=== PATIENT | male | born 1955 | race Hispanic/Latino ===

== ENCOUNTER 2022-07-08 06:50 | Day surgery (SDC) | payer MEDICARE, OTHER ==
[~2022-07-08] VITALS: Ht 170.2 cm; Wt 90.9 kg
[~2022-07-08 06:50] MED LIST: FLOMAX0.4 MG PO; LYRICA CR330 MG PO; MELOXICAM15 MG PO; METFORMIN HCL500 M3 PO; OMEGA 3 1,0001 EACH PO; OSTERA TABLET1 EACH PO; SAW PALMETTO500 MG PO; ZESTRIL2.5 MG PO; ZYRTEC10 MG PO
--- NOTE | 2022-07-08 10:17 | NUR ---
07/08/22 [address] [place] 1009- PT ARRIVES TO PACU REACTIVE TO PAINFUL STIMULI. PT GRIMACES TO A JAW THRUST. PT DOES NOT OPEN HIS EYES OR ANSWER QUESTIONS. RESP EVEN AND UNLABORED. OXYGEN SAT MID HIGH 90'S ON RA. 1011- CBG 106. 1012- PT SNORING. ABLE TO AROUSE PT. PT SLIGHTLY OPENS HIS EYES. SNORING STOPS. 1016- PT REACTIVE TO VERBAL STIMULI. PT ABLE TO SAY "YES" WHEN ASKED TO TAKE DEEP BREATHS.
--- NOTE | 2022-07-08 12:05 | NUR ---
1045: PT RETURNS TO UNIT VIA STRETCHER FROM PACU. AWAKE AND ALERT ON ARRIVAL. VSS, RESP EVEN AND UNLABORED. REPORTS PAIN LEVEL 4/10. MADDIE PO INTAKE WELL. PAIN RX ADMINISTERED ORDERED. SCDS IN PLACE. POC DISCUSSED AND PT AGREEABLE AT THIS TIME. NO NEEDS VOICED, CALL LIGHT WITHIN REACH 1155: PT LAYS IN STRETCHER AND VISITS WITH AT THE BEDSIDE. VSS, RESP EVEN AND UNLABORED. DENIES PAIN AND NAUSEA. DENIES NEED TO VOID AT THIS TIME, NO NEEDS VOICED. CALL LIGHT WITHIN REACH
--- NOTE | 2022-07-08 13:34 | NUR ---
1230: PT WITH CALL FOR THIS RN, REPORTS THE URGE TO VOID. USES URINAL AT THE BEDSIDE AND HAS SUCCESSFUL FIRST POSTOP VOID, 260MLS. SMALL STRINGY CLOT NOTED. VSS, RESP EVEN AND UNLABORED. DENIES PAIN AND NAUSEA. DANGLES AT THE BEDSIDE. MADDIE WELL, DENIES DIZZINESS AND SOB. IV REMOVED WITH CATH TIP INTACT AND PRESSURE APPLIED TO SITE, WNL. PT TO DRESS AND PREPARE FOR DC. DENIES NEED FOR ASSISTANCE 1255: DC INSTRUCTIONS PROVIDED BY MARSHA MARTINES AND PT WHEELED OFF OF UNIT FOR DC
--- NOTE | 2022-07-09 18:30 | OR ---
[facility] [address], [place] [address] Signed DATE OF OPERATION: 07/08/2022 SURGEON: Barron Lanza MD PREOPERATIVE DIAGNOSES: 1. 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 2. Urinary urgency and frequency. POSTOPERATIVE DIAGNOSES: 1. 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 2. Urinary urgency and frequency. 3. Moderate bladder neck elevation. NAMES OF PROCEDURES: 1. Diagnostic cystoscopy. 2. UroLift procedure. ANESTHESIA: General LMA. ESTIMATED BLOOD LOSS: Minimal. COMPLICATIONS: None. SPECIMENS: None. DRAINS: A 20-Zambian two-way Landin catheter, connected to gravity drainage. INDICATIONS FOR PROCEDURE: Mr. Loredo is a very pleasant 66-year-old gentleman who initially presented to me with complaints of urinary urgency, frequency, and nocturia symptoms. He does have a history of spinal cord injury in the past and so I was initially suspicious that he was experiencing overactive bladder symptoms. He underwent diagnostic cystoscopy which did reveal moderate bilobar lateral lobe hypertrophy with an elevated bladder neck. Bladder wall trabeculation was also present. After a long discussion with the patient and his regarding his treatment options. He did elect to undergo the UroLift procedure. 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 FINDINGS: 1. On cystoscopy, there was no evidence of any suspicious masses, lesions, or stones. Bilateral ureteral orifices are in normal anatomic location. There is grade 2 bladder wall trabeculation present. Also, noted is an elevated bladder neck, but there is no median bar or median lobe present. 2. The UroLift [address] three UroLift implants on the right side and two implants on the left. DESCRIPTION OF PROCEDURE: After informed consent was obtained, the patient was taken back to the operating room. He was transferred from the [facility] to the operating room table, where general anesthesia was induced. He was placed in the dorsal lithotomy position and the genitalia prepped and draped in standard sterile fashion. A 20-Zambian cystoscope was inserted into the urethral meatus. Guided by a visual obturator. Inspection of the prostatic urethra was notable for the obstruction present as a result of the enlarged lateral lobes. The visual obturator was then replaced with a UroLift 2 system delivery device. The first treatment site was the patient's left side approximately 1.5 cm distal to the bladder neck. The UroLift 2 system implantation steps were completed as indicated in product documentation. The capsular tap was successfully deployed, the urethral end piece was successfully affixed to the suture, and the suture was cut. The delivery device was then readvanced into the patient's bladder and then removed from the sheath and the patient. The implant cartridge was removed from the delivery device and replaced with the scope seal. The reassemble device was then reinserted into the patient's bladder. The implant location and opening effect was confirmed cystoscopically. The same steps of the procedure were then performed on the right side approximately 1.5 cm from the bladder neck. This was followed by two additional implants just proximal to the verumontanum on the right side and one additional implant on the left side of the prostate. All of this was performed following the indicated implantation technique. Final cystoscopy was conducted first to inspect the locations state of each implant and to confirm the presence of a continuous anterior channel from the verumontanum to bladder neck. This was confirmed to be present through the prostatic urethra with irrigation flow turned off. The bladder was then filled with 100 mL of irrigation fluid and a 20-Zambian two-way Landin catheter was inserted into the patient's bladder and connected to gravity drainage. 10 mL of sterile water was instilled into the patient's balloon today. The catheter was connected to gravity drainage and the procedure was Electronically Signed By: BARRON LANAZ MD 07/09/221829 PATIENT NAME: HORCAE LOREDO OPERATIVE REPORT DATE OF : 55 REPORT #: [id number] PHYSICIAN: BARRON LANZA MD PCP: ALFONSO DOBSON MD REPORT IS CONFIDENTIAL AND NOT TO BE RELEASED WITHOUT AUTHORIZATION [address] [address] Signed terminated. The patient tolerated the procedure the procedure well without any complication. He will now be transferred to the postanesthesia Care Unit in stable condition. DISPOSITION: I discussed the details of today's procedure with the patient's and answered all of her questions. He will be sent home today with Cipro 500 mg one tablet p.o. b.i.d. for a total of 7 days along with Pyridium 200 mg one tablet p.o. t.i.d. p.r.n. dysuria, dispense #21. He was also given 10 tablets of oxycodone 5 mg as needed for pain. His Landin catheter will be removed in approximately 20 minutes and then he will be allowed to attempt a voiding trial later this morning. He will be sent home once we were able to confirm that the patient is able to void on his own without difficulty. He will be scheduled return to clinic in approximately 2-3 weeks with a PVR for his first postoperative evaluation. MD NIKKI Turcios/BEBETO /[id number] Copies: ~ Electronically Signed By: BARRON LANZA MD 07/09/22 1830 PATIENT NAME: HORACE LOREDO OPERATIVE REPORT DATE OF : 55 REPORT #: [id number] PHYSICIAN: BARRON LANZA MD PCP: ALFONSO DOBSON MD REPORT IS CONFIDENTIAL AND NOT TO BE RELEASED WITHOUT AUTHORIZATION
== END 2022-07-08 12:55 | disposition home or self-care (01) ==
LOC: DS 06:50
PROVIDERS: ATTEND Urology
PROC: 0T7D8DZ Dilation of Urethra with Intraluminal Device, Via Natural or Artificial Opening Endoscopic (ICD-10-PCS; principal; 2022-07-08 08:30)
DX: N40.1 Benign prostatic hyperplasia with lower urinary tract symptoms (principal); R39.15 Urgency of urination; R35.0 Frequency of micturition; R35.1 Nocturia; R39.14 Feeling of incomplete bladder emptying; N39.43 Post-void dribbling; N32.89 Other specified disorders of bladder; I10 Essential (primary) hypertension; E66.9 Obesity, unspecified; Z68.30 Body mass index [BMI] 30.0-30.9, adult; Z79.899 Other long term (current) drug therapy
CPT/HCPCS: C1889; J0690; J1885; J2001; J2250; J2704; J3010; J7121